=== PATIENT | male | born 1980 | race Caucasian/White ===

== ENCOUNTER 2017-04-05 04:30 | Emergency (ER) | payer SELFPAY ==
[2017-04-05 04:59] VITALS: BP 135/83; PULSE 74; TEMP 97.9; BMI 27.3
[2017-04-05] MEDS ORDERED: BACITRACIN 0.9 GM PACKET ONE (05:20)
--- NOTE | 2017-04-05 05:29 | PDOC ---
History of Present Illness - General Chief Complaint: Rash Stated Complaint: SKIN PROBLEM Time Seen by Provider: 04/05/17 04:45 History Source: Patient Exam Limitations: No Limitations - History of Present Illness Initial Comments: 04/05/17 05:24 37yo male patient with no significant past medical history presents to ED c/o itching tattoo. Patient states he recently got a tattoo to his left forearm last week to cover up another tattoo. He reports waking up in the middle of the night with severe itching sensation. He denies drainage, pus, redness, tenderness, odor or any other complaints at this time. Patient states he has not been keeping site moist. Timing/Duration: reports: week. denies: just prior to arrival, other, constant , changing over time, getting worse, gone now, intermittent, yesterday, this afternoon, this evening, this morning Severity: Yes: mild. No: moderate, severe Location: reports: extremities. denies: none, face, feet, genitalia, generalized, hands, other, scalp, torso Respiratory Risk Factors: denies: no cause identified, exposure to illness, exposure to allergen, foods, insect bite, insect sting, medications, pollen, soaps, other Modifying Factors: worse with: antihistamine, calamine lotion, prednisone, scratching, topical steriods, other Associated Symptoms: denies: denies symptoms, blisters, change in skin texture, edema, fever, flushing, headache, hives, jaundice, malaise, nasal congestion, numbness, pallor, paresthesia, petechiae, rash, sore throat, swelling/mass/lumps , tingling, other Past History - Travel Traveled outside of the country in the last 30 days: No Close contact w/someone who was outside of country & ill: No - Past Medical History Allergies/Adverse Reactions: Allergies Allergy/AdvReac Type Severity Reaction Status Date / Time No Known Allergies Allergy Verified 04/05/17 04:59 - Suicide/Smoking/Psychosocial Hx Smoking History: Never smoked Have you smoked in the past 12 months: No Information on smoking cessation initiated: No Hx Alcohol Use: No Drug/Substance Use Hx: No Review of Systems - Review of Systems Able to Perform ROS?: Yes Is the patient limited Arabic proficient: No Constitutional: No: Chills, Fever Musculoskeletal: Yes: Other (See HPI) All Other Systems: Reviewed and Negative *Physical Exam - Vital Signs Last Vital Signs Temp Pulse Resp BP Pulse Ox 97.9 F 74 16 135/83 96 04/05/17 04:56 04/05/17 04:56 04/05/17 04:56 04/05/17 04:56 04/05/17 04:56 - Physical Exam General Appearance: Yes: Nourished, Appropriately Dressed. No: Apparent Distress, Mild Distress, Moderate Distress, Severe Distress Respiratory/Chest: positive: Lungs Clear, Normal Breath Sounds. negative: Chest Tender, Respiratory Distress, Accessory Muscle Use, Labored Respiration, Rapid RR, Decreased Breath Sounds, Paradoxal Breathing, Stridor, Wheezing, Dullness Cardiovascular: positive: Regular Rhythm, Regular Rate. negative: Tachycardia Musculoskeletal: positive: Normal Inspection. negative: CVA Tenderness, Decreased Range of Motion, Vertebral Tenderness Extremity: positive: Normal Capillary Refill, Normal Inspection, Normal Range of Motion. negative: Pedal Edema, Swelling, Calf Tenderness, Inflammation Integumentary: positive: Normal Color, Dry, Warm, Other (Dry, healing tattoo.). negative: Moist, Hives, Rash, Swelling Neurologic: positive: soda clerk II-XII NML intact, Fully Oriented, Alert, Normal Mood/ Affect, Normal Response, Motor Strength 5/5 *DC/Admit/Observation/Transfer Diagnosis at time of Disposition: Tattoo of skin - Discharge Dispostion Disposition: HOME Condition at time of disposition: Stable Admit: No - Referrals Referrals: Nalini Guzmán MD [Primary Care Provider] - - Patient Instructions Printed Discharge Instructions: How to Perform a Skin Exam Additional Instructions: Keep area clean, and moist using Triple antibiotic or Bacitracin ointment. Follow up with your mechanical artist if any concerns. You may return here if symptoms worsen. Print Language: WELSH - Post Discharge Activity
== END 2017-04-05 05:47 | disposition home or self-care (01) ==
LOC: JER 04:30
DX: L81.8 Other specified disorders of pigmentation (principal)
CPT/HCPCS: 99281-25

== ENCOUNTER 2019-03-14 03:42 | Emergency (ER) | payer SELFPAY ==
--- NOTE | 2019-03-14 04:05 | PDOC ---
History of Present Illness - General Stated Complaint: ABD PAIN Time Seen by Provider: 03/14/19 04:04 History Source: Patient Exam Limitations: No Limitations - History of Present Illness Initial Comments: 03/14/19 04:04 PCP: Dr. Beaulieu HPI: 39yo M with no significant PMH presenting with bloating abd discomfort for 2 days. Patient reports gradual onset, pain with slight predilection for right side, but all over abdomen - not sharp, mostly feels like bloating/gas, relieved by passing gas, worse after meals, sometimes keeps him awake if he happens to wake up during the night. Never had anything like this before. Denies nausea, vomiting, diarrhea, constipation, BRBPR, tarry stools, change in stool color, loss of appetite, dysuria. Has been eating vegetables and oatmeal to try and improve his symptoms. No Hx of abdominal surgery. NKDA No meds No PMH No PSH SHx: Occasional Smoker, ETOH, denies illicits Past History - Travel Traveled outside of the country in the last 30 days: No Close contact w/someone who was outside of country & ill: No - Past Medical History Allergies/Adverse Reactions: Allergies Allergy/AdvReac Type Severity Reaction Status Date / Time No Known Allergies Allergy Verified 03/14/19 04:30 Home Medications: Ambulatory Orders Cholecalciferol (Vitamin D3) [Vitamin D3 -] 400 unit PO DAILY 03/14/19 [place]-3/Dha/Epa/Fish Oil [[place] 3 500 Softgel] 1 each PO DAILY 03/14/19 Polyethylene Glycol 3350 [Miralax (For Bowel Prep) -] 17 gm PO DAILY #1 btl - Psycho Social/Smoking Cessation Hx Smoking History: Never smoked Have you smoked in the past 12 months: No Hx Alcohol Use: No Drug/Substance Use Hx: No Review of Systems - Review of Systems Able to Perform ROS?: Yes Is the patient limited Paraguayan proficient: Yes Constitutional: Yes: Weight Stable. No: Chills, Fever, Weakness HEENTM: No: Recent change in vision, Nose Congestion, Throat Pain, Mouth Pain Respiratory: No: Cough, Orthopnea, Shortness of Breath, Wheezing Cardiac (ROS): No: Chest Pain, Edema, Irregular Heart Rate, Palpitations, Syncope, Chest Tightness ABD/GI: No: Blood Streaked Bowels, Constipated, Diarrhea, Nausea, Poor Appetite , Poor Fluid Intake, Rectal Bleeding, Vomiting, Tarry Stools : No: Burning, Dysuria, Discharge, Urgency Musculoskeletal: No: Back Pain, Muscle Pain, Muscle Weakness Integumentary: No: Erythema, Pruritus, Rash Neurological: No: Headache, Numbness, Tingling, Weakness Psychiatric: No: Stressors, Emotional Problems Endocrine: No: Increased Thirst, Increased Urine Hematologic/Lymphatic: No: Anemia, Blood Clots, Easy Bleeding All Other Systems: Reviewed and Negative *Physical Exam - Physical Exam 03/14/19 04:24 WDWn man, appears stated age, no acute distress NCAT, MMM, EOMI, trachea midline, normal morphologies RRR, nl s1s2, no murmurs appreciated CTABL, normal WOB, no wheezes / rales / rhonchi Soft, non-tender, non-distended, no pain at mcburny's point, negative rodriguez, no rebound or guarding, negative rovsings, no rashes or scars 2+ radial and PT pulses WWP, no clubbing / caynosis / edema C?N grossly intact, normal gait, good strength, sensation preserved throughout Medical Decision Making - Medical Decision Making 03/14/19 04:26 39yo M with no significant PMH presenting with bloating abdominal discomfort. History notable for mild intermittent "gas-like" discomfort around meals, relieved by flatus, absence of or GI symptoms. Exam notable for absent tenderness, otherwise normal exam. DDX: Gas pains, lactose intolerance, less likely appendicitis, gastroenteritis, UC/Crohns, STI, nephrolithiasis, constipation. - UA - Maalox - Flat and upright plain film Dispo: Home 03/14/19 05:14 - UA without infection or blood - Patient with some improvement after Maalox - Xray pending upload 03/14/19 05:20 - Xray without air fluid level, free air, or dilation/volvulus. Some stool burden evident. Likely gas pain with some constipation Dispo: Home Discharge - Discharge Information Problems reviewed: Yes Clinical Impression/Diagnosis: Gas bloat syndrome Condition: Good Disposition: HOME - Admission No - Additional Discharge Information Prescriptions: Polyethylene Glycol 3350 [Miralax (For Bowel Prep) -] 17 gm PO DAILY #1 btl - Follow up/Referral Referrals: Nalini Guzmán MD [Primary Care Provider] - - Patient Discharge Instructions Patient Printed Discharge Instructions: Lactose Intolerance Additional Instructions: You were seen and evaluated in the ED for abdominal pain. Thank you for coming in. Please follow up with your primary care doctor in the next 2-3 days if your symptoms do not resolve. Return to the ED for any new or concerning symptoms. These include but are not limited to: nausea and vomiting preventing you from taking water by mouth, worsening abdominal pain, development of fevers and chills, any bloody or dark black bowel movements. - Post Discharge Activity
--- NOTE | 2019-03-14 04:08 | PDOC ---
Attending Attestation - Resident Resident Name: Phillip Duncan - ED Attending Attestation I have performed the following: I have examined & evaluated the patient, The case was reviewed & discussed with the resident, I agree w/resident's findings & plan - HPI HPI: 03/14/19 05:33 Pt developed gas bloating distension of abdomen and pain since yesterday when he ate a lot of cheese. Today he had oatmeal and banana ( no milk) and then grilled veggies and he developed abd pain and came to the ER. Afebrile No N/V/D and no ill contacts or food poisoning. - Physicial Exam PE: 03/14/19 05:35 Normal exam +gassy bowel sounds throughout No guarding and no rebound No flank pain afebrile - Medical Decision Making 03/14/19 05:35 Pt has constipation on KUB and he has no sign of bowel obstruction on the flat and upright XRAY Pt will be sent home with miralax. Lactulose will be given here,.
[2019-03-14] MEDS ORDERED: MAG HYDROX/AL HYDROX/SIMETH 30 ML UNIT-DOSE CUP PO ONE (04:16)
[2019-03-14] MEDS ORDERED: MAG HYDROX/AL HYDROX/SIMETH 30 ML UNIT-DOSE CUP ONE (04:22)
[2019-03-14 04:36] VITALS: BP 129/95; PULSE 63; TEMP 97.9; BMI 28.1
[2019-03-14 05:05] LABS: URINE APPEARANCE CLEAR; URINE BILIRUBIN NEGATIVE (NEGATIVE); URINE COLOR YELLOW; URINE GLUCOSE (UA) NEGATIVE (NEGATIVE); URINE KETONE TRACE (NEGATIVE); URINE LEUK ESTERASE NEGATIVE (NEGATIVE); URINE NITRITE NEGATIVE (NEGATIVE); URINE PROTEIN NEGATIVE (NEGATIVE); URINE UROBILINOGEN 0.2 mg/dL (0.2-1.0)
[2019-03-14] MEDS ORDERED: LACTULOSE 20 GM/30 ML UDC (FOR ORAL USE ONLY) PO ONE (05:32)
[2019-03-14] MEDS ORDERED: LACTULOSE 20 GM/30 ML UDC (FOR ORAL USE ONLY) ONE (05:44)
== END 2019-03-14 05:48 | disposition home or self-care (01) ==
LOC: JER 03:42
DX: K92.89 Other specified diseases of the digestive system (principal); R14.0 Abdominal distension (gaseous)
CPT/HCPCS: 74019-TC-FY; 81003; 99282-25

== ENCOUNTER 2019-04-26 14:00 | Emergency (ER) | payer OTHER ==
[2019-04-26 14:09] VITALS: BP 149/98; PULSE 102; TEMP 98.1; BMI 28.1
--- NOTE | 2019-04-26 14:10 | PDOC ---
Rapid Medical Evaluation Time Seen by Provider: 04/26/19 14:06 Medical Evaluation: Allergies Allergy/AdvReac Type Severity Reaction Status Date / Time No Known Allergies Allergy Verified 03/14/19 04:30 04/26/19 14:06 This patient had brief-in person evaluation in triage cc:blood from rectum today HPI: Patient reports +hemorrhoid, + red blood after bowel movement today stttes bleeding persist. With no shortness of breath, or dizziness. no clots Pe: no pallor unlabored breathing non tender abdomen, orders:none This patient will proceed to main ed for further evaluation Discharge Disposition - Diagnosis Bleeding hemorrhoid - Referrals - Patient Instructions - Post Discharge Activity
--- NOTE | 2019-04-26 15:55 | PDOC ---
History of Present Illness - General Chief Complaint: Hemorrhoids Stated Complaint: RECTAL BLEED Time Seen by Provider: 04/26/19 14:06 - History of Present Illness Initial Comments: 04/26/19 15:53 39-year-old male with anal irritation and bleeding x2 days. Irritation started a week ago blood on the toilet paper during a strenuous bowel movement started about 2 days ago. No black tarry stool no blood in the water. No systemic symptoms Past History - Past Medical History Allergies/Adverse Reactions: Allergies Allergy/AdvReac Type Severity Reaction Status Date / Time No Known Allergies Allergy Verified 04/26/19 14:10 Home Medications: Ambulatory Orders Cholecalciferol (Vitamin D3) [Vitamin D3 -] 400 unit PO DAILY 03/14/19 [place]-3/Dha/Epa/Fish Oil [[place] 3 500 Softgel] 1 each PO DAILY 03/14/19 Polyethylene Glycol 3350 [Miralax (For Bowel Prep) -] 17 gm PO DAILY #1 btl Simethicone 80 mg PO DAILY #30 tab.chew 03/14/19 Hydrocortisone Acetate [Anusol Hc Suppository -] 25 mg RC BID #28 supp.rect 06/10 COPD: No Other medical history: DENIES - Immunization History Immunization Up to Date: Yes - Psycho Social/Smoking Cessation Hx Smoking History: Current some day smoker Have you smoked in the past 12 months: Yes Number of Cigarettes Smoked Daily: 2 Information on smoking cessation initiated: No Hx Alcohol Use: No (SOCIAL) Drug/Substance Use Hx: No Review of Systems - Review of Systems Constitutional: No: Fever ABD/GI: Yes: Rectal Bleeding. No: Blood Streaked Bowels, Constipated, Diarrhea , Nausea, Vomiting *Physical Exam - Vital Signs Last Vital Signs Temp Pulse Resp BP Pulse Ox 98.1 F 102 H 18 149/98 100 04/26/19 14:06 04/26/19 14:06 04/26/19 14:06 04/26/19 14:06 04/26/19 14:06 - Physical Exam 04/26/19 15:53 There is a large external hemorrhoid at the 2 o'clock position on the anus with blood around it Medical Decision Making - Medical Decision Making 04/26/19 15:54 This area may represent a thrombosed hemorrhoid Anusol AC follow-up with GI Discharge - Discharge Information Problems reviewed: Yes Clinical Impression/Diagnosis: Bleeding hemorrhoid Condition: Stable Disposition: HOME - Admission No - Additional Discharge Information Prescriptions: Hydrocortisone Acetate [Anusol Hc Suppository -] 25 mg RC BID #28 supp.rect - Follow up/Referral Referrals: Trevin Hooks MD [Staff Physician] - - Patient Discharge Instructions Patient Printed Discharge Instructions: DI for Hemorrhoids Additional Instructions: Please use the suppositories as directed and return to the emergency room should symptoms worsen. Without fail follow-up with gastroenterology in 1 to 2 days for further evaluation and treatment options. - Post Discharge Activity
== END 2019-04-26 16:05 | disposition home or self-care (01) ==
LOC: JERFT 14:00
DX: K64.8 Other hemorrhoids (principal)
CPT/HCPCS: 99281-25

== ENCOUNTER 2021-12-26 03:10 | Emergency (ER) | payer OTHER ==
[2021-12-26 03:20] VITALS: BP 141/92; PULSE 71; RESP 18; TEMP 98; BMI 28.1
[2021-12-26] MEDS ORDERED: MAG HYDROX/AL HYDROX/SIMETH 30 ML UNIT-DOSE CUP PO ONE (03:44)
[2021-12-26] MEDS ORDERED: FAMOTIDINE 20 MG TABLET PO ONE (03:44)
[2021-12-26] MEDS ORDERED: MAG HYDROX/AL HYDROX/SIMETH 30 ML UNIT-DOSE CUP ONE (03:47)
[2021-12-26] MEDS ORDERED: FAMOTIDINE 20 MG TABLET ONE (03:47)
== END 2021-12-26 04:50 | disposition home or self-care (01) ==
LOC: JER 03:10
DX: R10.13 Epigastric pain (principal)
CPT/HCPCS: 82962; 93005; 93010; 99284-25